=== PATIENT | female | born 1980 | race Caucasian/White ===

== ENCOUNTER → 2017-04-04 13:52 | Outpatient (POV) | payer OTHER, SELFPAY | PROVIDERS: Visit Provider Nurse Practitioner Acute Care | DX: Z00.00 Encounter for general adult medical examination without abnormal findings (principal) ==

== ENCOUNTER → 2017-07-05 08:47 | Outpatient (CLI) | payer OTHER, SELFPAY ==
--- NOTE | 2017-07-05 08:50 | MM_ITS ---
MM Dig screening mamm BI w/CAD CAD Screening COMPARISON: Digital mammograms 06/23/2015 and 04/14/2016 INDICATION: There is a history of breast cancer and patient's 2 maternal aunts. TECHNIQUE: Standard CC and MLO images were obtained. R2 CAD reviewed. FINDINGS: Moderate diffuse fibroglandular densities are seen throughout both breasts. Again noted is asymmetric glandular tissue upper outer quadrant right breast which is stable. There is a mole marker left breast. There is a stable benign-appearing density upper central portion of the left breast as well. There is no new or suspicious lesion in either breast and there are no suspicious microcalcifications. IMPRESSION: Moderate diffuse breast density with no suspicious lesion seen BI-RADS Category: 2 Benign Finding(s) RECOMMENDED FOLLOW-UP: 1YR - 1 YEAR FOLLOW-UP (A letter has been sent to the patient regarding results of the study.)
== END ==
PROVIDERS: Family Provider Otolaryngology; PCP Family Medicine; Visit Provider Physician Assistant
DX: Z12.31 Encounter for screening mammogram for malignant neoplasm of breast (principal)
CPT/HCPCS: 77067

== ENCOUNTER → 2017-11-28 15:14 | Outpatient (CLI) | payer OTHER, SELFPAY ==
--- NOTE | 2017-11-28 15:16 | US_ITS ---
US transvaginal HISTORY: ITS.REASON: pelvic pain,dyspareunia, and possible endometrosis ORDERING PHYSICIAN: Gage Ovalles MD PATIENT AGE: 37 years Comparison: None Last menstrual period 11/17/2017 FINDINGS: The uterus is 8.4 x 4.4 x 6.6 cm with a combined endometrial thickness of 9 mm. There is a nabothian cyst at 8 mm. No uterine mass is evident. The left ovary is 3.8 x 2.7 cm containing small follicles and a follicular cyst at 12 x 8 mm. The right ovary is 2 x 3 cm containing follicular cyst measuring up to 17 mm. No cul-de-sac fluid evident. IMPRESSION: 1. The endometrium measures 9 mm in thickness slightly prominent for early proliferative phase 2. Small bilateral ovarian follicular cysts
== END ==
PROVIDERS: Family Provider Otolaryngology; PCP Family Medicine; Visit Provider Nurse Practitioner Obstetrics & Gynecology
DX: R10.2 Pelvic and perineal pain (principal); N80.9 Endometriosis, unspecified
CPT/HCPCS: 76830

== ENCOUNTER → 2019-01-16 09:25 | Outpatient (CLI) | payer OTHER, SELFPAY ==
--- NOTE | 2019-01-16 09:51 | MM_ITS ---
PROCEDURE: MM DIG SCREENING MAMM BI W/CAD CLINICAL INDICATION: SCREENING There is a history of breast cancer patient's paternal aunt. COMPARISON: DMDBAV DIG MAMM-DX ARTURO W ADD VIEWS from 06/23/2015 DMDB DIG MAMM-DX ARTURO W/CAD from 04/14/2016 [facility] MM Dig screening mamm BI w/CAD from 07/05/2017 TECHNIQUE: Standard MLO and CC views were obtained. Findings: Moderate diffuse fibroglandular densities are seen throughout both breasts. There are mole markers left breast. There are stable asymmetric glandular elements upper-outer quadrant right breast. The asymmetric nodular density upper central portion left breast seen on previous exam has shown slight interval increase in size though maintaining and smooth borders. However recommend patient return for spot compression views and ultrasound for additional evaluation. No suspicious microcalcifications. FINDINGS: IMPRESSION: Moderate diffuse breast density with possible change in asymmetric density left breast BI-RAD Category: 0 Need Additional Imaging Evaluation FOLLOW-UP: IMM Immediate Follow-up Recommended (A letter has been sent to the patient regarding results of the study.) Dictated by: Dr. Gabriel Bell MD 01/18/2019 10:[address] Gabriel Bell MD in [place] 01/18/2019 10:28
== END ==
PROVIDERS: PCP Family Medicine; Visit Provider Nurse Practitioner Family
DX: Z12.31 Encounter for screening mammogram for malignant neoplasm of breast (principal)
CPT/HCPCS: 77067

== ENCOUNTER → 2019-02-08 12:54 | Outpatient (CLI) | payer OTHER, SELFPAY ==
--- NOTE | 2019-02-08 | US_ITS ---
PROCEDURE: US BREAST LT COMPLETE CLINICAL INDICATION: Evaluation of asymmetric nodular density on recent mammogram COMPARISON: BL US BREAST-LT COMPLETE W/AXILLA from 06/23/2015 FINDINGS: There is a tiny hypoechoic cystic-appearing lesion at the 12 o'clock position near the nipple measuring 0.4 by 0.4 by point 1 cm too small to characterize but likely a small cyst. Is a hypoechoic oval nodular lesion at the 2 o'clock position outer breast measuring 1.1 by 0.8 cm in diameter with rather homogeneous internal echoes and this likely is a small fibroadenoma. There are normal appearing nodes in the axilla. IMPRESSION: Benign-appearing solid lesion as described likely fibroadenoma. Dictated by: Dr. Gabriel Bell MD 02/15/2019 11:[address] Gabriel Bell MD in [place] 02/15/2019 11:03
--- NOTE | 2019-02-08 12:56 | MM_ITS ---
PROCEDURE: MM DIG MAMM DX UNILAT LT CAD CLINICAL INDICATION: ABNORMAL MAMM COMPARISON: DMDB DIG MAMM-DX ARTURO W/CAD from 04/14/2016 [facility] MM Dig screening mamm BI w/CAD from 07/05/2017 MM DIG SCREENING MAMM BI W/CAD from 01/16/2019 TECHNIQUE: Spot-compression MLO and CC views were obtained along with 90 degree lateral view FINDINGS: The nodular lesion is persistent and does not press out. Show smooth well-defined borders and sits approximately at the 10 o'clock position mid breast. No definite ultrasound correlation was seen on the ultrasound exam performed the same date. However this likely represents a fibroadenoma likely isoechoic to the surrounding breast parenchyma. Recommend the patient return for six-month follow-up mammogram and ultrasound for continuing evaluation. IMPRESSION: Benign-appearing lesion likely fibroadenoma BI-RAD Category: 3 Probably Benign Finding Short Term Follow-up FOLLOW-UP: 6M 6Month Follow-up (A letter has been sent to the patient regarding results of the study.) Dictated by: Dr. Gabriel Bell MD 02/15/2019 11:[address] Gbariel Bell MD in [place] 02/15/2019 11:10
== END ==
PROVIDERS: PCP Nurse Practitioner Family; Visit Provider Nurse Practitioner Family
DX: R92.8 Other abnormal and inconclusive findings on diagnostic imaging of breast (principal)
CPT/HCPCS: 76641; 77065

== ENCOUNTER → 2019-08-09 13:32 | Outpatient (CLI) | payer OTHER, SELFPAY ==
--- NOTE | 2019-08-09 13:35 | MM_ITS ---
PROCEDURE: MM DIG MAMM DX UNILAT LT CAD Digital Breast Tomosynthesis Included CLINICAL INDICATION: L BREAST LUMP six-month follow-up COMPARISON: [facility] MM Dig screening mamm BI w/CAD from 07/05/2017 MM DIG SCREENING MAMM BI W/CAD from 01/16/2019 MM DIG MAMM DX UNILAT LT CAD from 02/08/2019 US BREAST LT COMPLETE from 08/09/2019 TECHNIQUE: Standard CC and MLO images and 3D Tomosynthesis was obtained. R2 CAD reviewed. FINDINGS: The nodular lesion upper inner quadrant is stable unchanged in size and overall appearance from the previous exam. Dexter images are most helpful in confirming the stability of this lesion. Again the margins are fairly well-defined. Moderate somewhat heterogenic fibroglandular densities are seen in the central portion of the breast and subareolar region as noted previously. Mole markers are again seen near the axillary tail. Ultrasound performed the same date showed no definite ultrasound correlation as was noted on the previous ultrasound. IMPRESSION: Probable fibroadenoma with smooth well-defined borders likely isoechoic with the surrounding breast parenchyma, however suggest the patient continue with yearly screening mammography in 6 months once again to evaluate for interval stability. BI-RAD Category: 3 Probably Benign Finding Short Term Follow-up FOLLOW-UP: 6M 6Month Follow-up to return to normal yearly screening schedule (A letter has been sent to the patient regarding results of the study.) Dictated by: Dr. Gabriel Bell MD 08/17/2019 07:[address] Gabriel Bell MD in [place] 08/17/2019 07:52
--- NOTE | 2019-08-09 13:37 | US_ITS ---
PROCEDURE: US BREAST LT COMPLETE CLINICAL INDICATION: L BREAST LUMP COMPARISON: US BREAST LT COMPLETE from 02/08/2019 FINDINGS: A couple of tiny hypoechoic cystic lesions are seen at the 12 o'clock position near the nipple and the 9 o'clock position outer breast. However once again there is no ultrasound correlation for the well-defined nodular lesion 10 o'clock position outer breast. There are couple normal appearing nodes in the axilla. IMPRESSION: No ultrasound correlation as described, the lesions seen on mammogram likely is a fibroadenoma and likely isoechoic to the surrounding breast parenchyma on ultrasound exam and recommend 1 more six-month follow-up ultrasound to be performed at the time of the yearly screening mammogram and January 2020 Dictated by: Dr. Gabriel Bell MD 08/17/2019 08:[address] Gabriel Bell MD in [place] 08/17/2019 08:00
== END ==
PROVIDERS: PCP Family Medicine; Visit Provider Nurse Practitioner Family
DX: N63.22 Unspecified lump in the left breast, upper inner quadrant (principal)
CPT/HCPCS: 76641; 77061; 77065; G0279

== ENCOUNTER → 2020-02-14 09:11 | Outpatient (CLI) | payer OTHER, SELFPAY ==
--- NOTE | 2020-02-14 | US_ITS ---
PROCEDURE: MG MM DIG MAMM BI DX W/CAD US US BREAST RT COMPLETE US BREAST LT COMPLETE Referring Doctor: Bhumi Hernandez Patient Age:39Y CLINICAL INDICATION: LT BREAST LUMP follow-up . ALSO RIGHT breast mass upper outer quadrant seen on today's images COMPARISON: MG DMDBAV DIG MAMM-DX ARTURO W ADD VIEWS from 06/23/2015 US BL US BREAST-LT COMPLETE W/AXILLA from 06/23/2015 MG DMDB DIG MAMM-DX ARTURO W/CAD from 04/14/2016 [facility] MM Dig screening mamm BI w/CAD from 07/05/2017 MG MM DIG SCREENING MAMM BI W/CAD from 01/16/2019 MG MM DIG MAMM DX UNILAT LT CAD from 02/08/2019 US US BREAST LT COMPLETE from 08/09/2019 MG MM DIG MAMM DX UNILAT LT CAD from 08/09/2019 MG MM DIG MAMM BI DX W/CAD from 02/14/2020 US US BREAST RT COMPLETE from 02/14/2020 US US BREAST LT COMPLETE from 02/14/2020 FINDINGS: ------DIAGNOSTIC BILATERAL MAMMOGRAM Right breast mammogram: (Right MLO and cc view with tomosynthesis, 90 degree axillary CC view in a view, cc) Large 4 cm ovoid asymmetric density/mass at upper-outer quadrant right breast more evident today.. Ultrasound will be performed Left breast mammogram- (. Left MLO, MLO and cc views with tomosynthesis, plus full 90 degree view performed today and axillary CC view) round density at 11-12 o'clock is again noted but appears slightly larger and denser today's MLO views b measuring 15 mm and has clearly increased in size since 2018... Although appears fairly similar in size versus July 2019 right CC view. Subsequent left breast ultrasound reveals scattered cysts but they do not correlate well with this dominant density in mammography which should be-12 at the 11-12 o'clock position.-this area labeled X. Thus I suggested rescanning when the patient returns for biopsy of right breast BILATERAL BREAST ULTRASOUND: ---------ULTRASOUND ENTIRE LEFT BREAST including axillary survey 12 o'clock,-- 5.6 mm cyst 2 o'clock. Bilobed, slight debris-filled septated cyst measures 1 cm. Of this largest feature appears to be a benign septated cyst. However seems slightly lateral to confidently account for the mammography density. 2 o'clock outer breast of 6 mm x 3 mm probable debris-filled cyst versus possible small fibroadenoma. 3 o'clock outer breast small 5 mm cyst Axillary survey performed scattered benign-appearing lymph nodes. No suspicious nodes The larger ovoid density on today's mammograms is more towards the 11-12 o'clock position is not identified today's ultrasound only possible questionably correlates correlates with area more laterally the area 2 o'clock I would suggest follow-up scanning an attempt to correlate. If no discrete finding at 11 o'clock than you may want consider aspirating the area at 2 o'clock to see if it correlates If it does not than not then a stereotactic biopsy of this round density labeled X, may be warranted. -----ULTRASOUND RIGHT BREAST INCLUDING axillary survey----- most significant is the large heterogeneous masses seen at the upper-outer quadrant right breast 10 o'clock position. This correlates with the mammographic density.. It measures up to 3.9 cm maximum sagittal length x 1.7 cm x 3.3 cm... Could be a large fibroadenoma Recommend percutaneous ultrasound-guided biopsy. Ultrasound-guided biopsy would be most feasible and expeditious. Other small benign-appearing areas can be followed 1 o'clock tiny 4 mm cyst central breast but 5 o'clock 6.5 mm debris-filled cyst or semi-solid nodule. 7 o'clock. Small 5.7 mm cyst 8 o'clock bilobed 3.4 x 2.5 mm most likely of paired apocrine cyst 9 o'clock a 9 mm probable debris-filled septated cyst versus semi-solid structure. Axillary survey. Numerous benign-appearing axillary lymph nodes
== END ==
PROVIDERS: PCP Family Medicine; Visit Provider Nurse Practitioner Family
DX: R92.8 Other abnormal and inconclusive findings on diagnostic imaging of breast (principal); N63.20 Unspecified lump in the left breast, unspecified quadrant
CPT/HCPCS: 76641; 77062; 77066; G0279

== ENCOUNTER → 2020-07-08 16:17 | Outpatient (CLI) | payer OTHER, SELFPAY ==
[2020-07-08 17:19] LABS: Alanine Aminotransferase 37 U/L (12-78); Albumin Level 4.4 g/dl (3.5-5.0); Albumin/Globulin Ratio 1.7 (1.1-1.8); Alkaline Phosphatase 47 U/L (38-126); Anion Gap 10.9 mEq/L (5-15); Aspartate Amino Transferase 31 U/L (14-36); Bilirubin,Total 0.3 mg/dl (0.2-1.3); Blood Urea Nitrogen 17 mg/dl (7-17); Calcium 9.1 mg/dl (8.4-10.2); Carbon Dioxide 27 mmol/L (22.0-30.0); Chloride 104 mmol/L (98-107); Chol/HDL Ratio 2.9 (1-3.5); Cholesterol 157 mg/dl (140-200); Estimated Glomerular Filt Rate 70 ml/min (>60); GFR (African American) 85 ML/MIN (>60); Globulin 2.6 g/dL (1.3-3.2); Glucose 96 mg/dl (74-100); HDL Cholesterol 54 mg/dl (40-60); Potassium 3.9 mmoL/L (3.5-5.1); Sodium 138 mmol/L (136-145); Triglycerides 196 mg/dl (30-150); VLDL Cholesterol 39 mg/dL (0-40)
[2020-07-08 17:29] LABS: Direct LDL Cholesterol 73.04 mg/dL (100-129)
[2020-07-08 17:49] LABS: Thyroid Stimulating Hormone 1.41 uIU/mL (0.465-4.68)
[2020-07-08 18:06] LABS: Basophils # 0.1 K/mm3 (0-0.2); Basophils % 0.7 % (0.1-2.0); Eosinophils # 0.2 K/mm3 (0.0-0.4); Eosinophils % 2.2 % (0.1-12.0); Hematocrit 42.4 % (37.0-47.0); Hemoglobin 14.3 g/dL (12.2-16.2); Lymphocytes # 2.8 K/mm3 (0.7-4.5); Lymphocytes % 30.2 % (10-50); Mean Corpuscular HGB Conc 33.6 g/dL (31.8-35.4); Mean Corpuscular Hemoglobin 31.1 pg (27.0-31.2); Mean Corpuscular Volume 92.4 fl (81-99); Mean Platelet Volume 8.1 fl (7.4-10.4); Monocytes # 0.5 K/mm3 (0.1-1.0); Monocytes % 5.5 % (1.7-9.3); Neutrophils # 5.6 K/mm3 (1.8-7.8); Neutrophils % 61.4 % (37.0-80.0); Platelet Count 299 K/mm3 (142-424); Red Blood Count 4.59 M/mm3 (4.20-5.40); Red Cell Distribution Width 12.5 % (11.5-17.5); White Blood Count 9.1 K/mm3 (4.8-10.8)
== END ==
PROVIDERS: Visit Provider Nurse Practitioner Family
DX: I10 Essential (primary) hypertension (principal); E03.9 Hypothyroidism, unspecified; Z13.220 Encounter for screening for lipoid disorders; Z79.899 Other long term (current) drug therapy
CPT/HCPCS: 36415; 80053; 80061; 84443; 85025

== ENCOUNTER → 2020-11-13 09:13 | Outpatient (CLI) | payer OTHER, SELFPAY ==
[2020-11-13 09:37] LABS: Basophils # 0.2 K/mm3 (0-0.2); Eosinophils # 0.2 K/mm3 (0.0-0.4); Eosinophils % 2.5 % (0.1-12.0); Hematocrit 41.7 % (37.0-47.0); Hemoglobin 14.1 g/dL (12.2-16.2); Lymphocytes % 22.9 % (10-50); Mean Corpuscular Hemoglobin 31.8 pg (27.0-31.2); Mean Corpuscular Volume 93.7 fl (81-99); Mean Platelet Volume 8.6 fl (7.4-10.4); Monocytes # 0.4 K/mm3 (0.1-1.0); Monocytes % 4.4 % (1.7-9.3); Neutrophils % 68.1 % (37.0-80.0); Platelet Count 330 K/mm3 (142-424); Red Blood Count 4.44 M/mm3 (4.20-5.40); White Blood Count 8.8 K/mm3 (4.8-10.8)
[2020-11-13 10:17] LABS: Chloride 104 mmol/L (98-107)
[2020-11-13 10:18] LABS: Potassium 4.1 mmoL/L (3.5-5.1); Sodium 139 mmol/L (136-145)
[2020-11-13 10:20] LABS: Blood Urea Nitrogen 6 mg/dl (7-17); Estimated Glomerular Filt Rate 111 ml/min (>60); GFR (African American) 135 ML/MIN (>60)
[2020-11-13 10:21] LABS: Alanine Aminotransferase 35 U/L (12-78); Albumin/Globulin Ratio 1.5 (1.1-1.8); Alkaline Phosphatase 53 U/L (38-126); Anion Gap 13.1 mEq/L (5-15); Aspartate Amino Transferase 31 U/L (14-36); Bilirubin,Total 0.2 mg/dl (0.2-1.3); Calcium 8.8 mg/dl (8.4-10.2); Carbon Dioxide 26 mmol/L (22.0-30.0); Chol/HDL Ratio 2.4 (1-3.5); Cholesterol 124 mg/dl (140-200); Globulin 2.7 g/dL (1.3-3.2); Glucose 145 mg/dl (74-100); HDL Cholesterol 52 mg/dl (40-60); Total Protein,Serum 6.7 g/dl (6.3-8.2); Triglycerides 114 mg/dl (30-150); VLDL Cholesterol 23 mg/dL (0-40)
[2020-11-13 10:32] LABS: Direct LDL Cholesterol 54.84 mg/dL (100-129)
[2020-11-13 10:41] LABS: Free Thyroxine Index 2.2 ug/dL (5.93-13.13); Triiodothryronine (T3) Uptake 27 % (23.5-40.5)
[2020-11-13 10:53] LABS: Thyroid Stimulating Hormone 2.51 uIU/mL (0.465-4.68)
[2020-11-13 10:55] LABS: Thyroid Stimulating Hormone 2.51 uIU/mL (0.465-4.68)
[2020-11-13 11:28] LABS: Hemoglobin A1C 5.9 % (4.0-6.0)
== END ==
PROVIDERS: Orthopaedic Surgery; Visit Provider Nurse Practitioner Family
DX: I10 Essential (primary) hypertension (principal); E03.9 Hypothyroidism, unspecified
CPT/HCPCS: 36415; 80053; 80061; 83036; 84436; 84443; 84479; 85025

== ENCOUNTER → 2023-02-11 16:49 | Outpatient (CLI) | payer OTHER, SELFPAY ==
[2023-02-10 16:31] LABS: Basophils # 0.1 K/mm3 (0-0.2); Basophils % 0.7 % (0.1-2.0); Eosinophils # 0.1 K/mm3 (0.0-0.4); Eosinophils % 1.4 % (0.1-12.0); Hemoglobin 15.6 g/dL (12.2-16.2); Lymphocytes # 2.1 K/mm3 (0.7-4.5); Mean Corpuscular HGB Conc 34.6 g/dL (31.8-35.4); Mean Corpuscular Hemoglobin 32.2 pg (27.0-31.2); Mean Corpuscular Volume 92.8 fl (81-99); Monocytes # 0.4 K/mm3 (0.1-1.0); Monocytes % 5.4 % (1.7-9.3); Neutrophils # 4.9 K/mm3 (1.8-7.8); Neutrophils % 64.5 % (37.0-80.0); Platelet Count 315 K/mm3 (142-424); Red Blood Count 4.85 M/mm3 (4.20-5.40); Red Cell Distribution Width 13.2 % (11.5-17.5); White Blood Count 7.5 K/mm3 (4.8-10.8)
[2023-02-10 16:35] LABS: Alanine Aminotransferase 26 U/L (12-78); Albumin Level 4.5 g/dl (3.5-5.0); Albumin/Globulin Ratio 1.7 (1.1-1.8); Alkaline Phosphatase 46 U/L (38-126); Anion Gap 10.4 mEq/L (5-15); Aspartate Amino Transferase 30 U/L (14-36); Bilirubin,Total 0.4 mg/dl (0.2-1.3); Blood Urea Nitrogen 8 mg/dl (7-17); Calcium 9.2 mg/dl (8.4-10.2); Carbon Dioxide 26 mmol/L (22.0-30.0); Chloride 106 mmol/L (98-107); Chol/HDL Ratio 3.2 (1-3.5); Cholesterol 163 mg/dl (140-200); Estimated Glomerular Filt Rate 79 ml/min (>60); GFR (African American) 96 ML/MIN (>60); Globulin 2.7 g/dL (1.3-3.2); Glucose 91 mg/dl (74-100); HDL Cholesterol 51 mg/dl (40-60); Potassium 4.4 mmoL/L (3.5-5.1); Sodium 138 mmol/L (136-145); Total Protein,Serum 7.2 g/dl (6.3-8.2); Triglycerides 123 mg/dl (30-150); VLDL Cholesterol 25 mg/dL (0-40)
[2023-02-10 16:47] LABS: Direct LDL Cholesterol 86.08 mg/dL (100-129)
[2023-02-10 16:52] LABS: T4 (Thyroxine) 9.7 ug/dl (5.53-11.0); Triiodothryronine (T3) Uptake 27 % (23.5-40.5)
== END ==
LOC: LAB.DROPOF 16:50
PROVIDERS: PCP Family Medicine; Visit Provider Nurse Practitioner Family
DX: Z90.89 Acquired absence of other organs (principal); Z98.890 Other specified postprocedural states
CPT/HCPCS: 80053; 80061; 84436; 84443; 84479; 85025